=== PATIENT | female | born 1960 | race Caucasian/White ===

== ENCOUNTER 2018-09-18 07:44 | Inpatient (IN) | payer MEDICARE ==
[~2018-09-18] VITALS: Ht 157.5 cm; Wt 59.2 kg
[2018-09-18 09:13] LABS: ANION GAP 14 mmol/L (8-16); CALCIUM, TOTAL 9.3 mg/dL (8.8-10.5); CARBON DIOXIDE 22 mmol/L (22-29); CHLORIDE 103 mmol/L (98-107); CREATININE 0.76 mg/dL (0.60-1.30); GLOMERULAR FILTR. RATE CALC > 60 mL/min (>60); GLUCOSE,RANDOM 118 mg/dL (70-110); POTASSIUM 4.6 mmol/L (3.5-5.1); SODIUM SERUM 139 mmol/L (136-145); UREA NITROGEN, BLOOD 19 mg/dL (7-18)
[2018-09-18 09:19] LABS: ALANINE AMINOTRANSFERASE 22 U/L (12-78); ALBUMIN 3.8 g/dL (3.4-5.0); ALKALINE PHOSPHATASE 91 U/L (46-116); ASPARTATE AMINOTRANSFERASE 25 U/L (15-37); BILIRUBIN,TOTAL 0.4 mg/dL (0.1-1.0)
[2018-09-18 09:36] LABS: BASOPHILS % (AUTO) 0.6 % (0.0-2.0); EOSINOPHILS % (AUTO) 0.5 % (1.0-6.0); HEMATOCRIT 46.3 % (36-46); HEMOGLOBIN 15.9 g/dL (12.0-16.0); LYMPHOCYTES # (AUTO) 2.6 K/uL (1.0-4.8); LYMPHOCYTES % (AUTO) 23.2 % (22.0-44.0); MEAN CORPUSCULAR HEMOGLOBIN 31.8 pg (26.0-34.0); MEAN CORPUSCULAR HGB CONC 34.3 G/dL (31.0-37.0); MEAN CORPUSCULAR VOLUME 93 fL (80-100); MONOCYTES # (AUTO) 0.7 K/uL (0.1-1.0); MONOCYTES % (AUTO) 5.9 % (2.0-9.0); NEUTROPHILS # (AUTO) 7.8 K/uL (1.8-7.7); NEUTROPHILS % (AUTO) 69.8 % (40.0-70.0); PLATELET COUNT (AUTO) 212 K/uL (150-450); RED CELL DISTRIBUTION WIDTH 13.2 % (11.5-14.5)
[2018-09-18] MEDS ORDERED: ZOLPIDEM TARTRATE 10 MG TABLET PO PRN (09:45)
[2018-09-18] MEDS ORDERED: HALOPERIDOL 5 MG TABLET PO PRN (09:45)
[2018-09-18] MEDS ORDERED: LORazepam 2 MG TABLET PO PRN (09:45)
[2018-09-18 10:39] LABS: AMPHET/METH SCREEN,URINE NEGATIVE (NEGATIVE); BARBITURATE SCREEN, URINE NEGATIVE (NEGATIVE); BENZODIAZEPINES SCREEN,URINE NEGATIVE (NEGATIVE); CANNABINOID SCREEN,URINE NEGATIVE (NEGATIVE); COCAINE SCREEN,URINE NEGATIVE (NEGATIVE); METHADONE SCREEN, URINE NEGATIVE (NEGATIVE); OPIATE SCREEN,URINE NEGATIVE (NEGATIVE)
[2018-09-18 10:44] LABS: PHENCYCLIDINE SCREEN,URINE NEGATIVE (NEGATIVE)
[2018-09-18 14:21] VITALS: BP 120/85
[2018-09-18 16:09] VITALS: BP 113/64
[2018-09-19 05:36] VITALS: BP 110/68
[2018-09-19 08:36] VITALS: BP 100/66
[2018-09-19] MEDS ORDERED: MAG HYDROX/AL HYDROX/SIMETH ES 30 ML SUSPENSION UDCUP PO PRN (16:30)
[2018-09-19] MEDS ORDERED: NICOTINE 14 MG/24 HOUR PATCH TD PRN (16:30)
[2018-09-19] MEDS ORDERED: IBUPROFEN 400 MG TABLET PO PRN (16:30)
[2018-09-19] MEDS ORDERED: CloNIDine HCL 0.1 MG TABLET PO PRN (16:30)
[2018-09-19] MEDS ORDERED: DOCUSATE SODIUM 100 MG CAPSULE PO PRN (16:30)
[2018-09-19] MEDS ORDERED: ONDANSETRON HCL 4 MG TABLET PO PRN (16:30)
[2018-09-19] MEDS ORDERED: LOPERAMIDE HCL 2 MG CAPSULE PO PRN (16:30)
[2018-09-19] MEDS ORDERED: GuaiFENesin/D-METHORPHAN [SUGAR-FREE] 200-20MG/10 ML SYRUP UDCUP PO PRN (16:30)
[2018-09-19] MEDS ORDERED: PETROLATUM,WHITE 71 GM JELLY TP PRN (16:30)
[2018-09-19] MEDS ORDERED: ALBUTEROL SULFATE HFA 90 MCG/PUFF 8 GM INHALER IH PRN (16:30)
[2018-09-19] MEDS ORDERED: ACETAMINOPHEN 325 MG TABLET PO PRN (16:30)
[2018-09-19] MEDS ORDERED: MAGNESIUM HYDROXIDE SUSPENSION 30 ML UDCUP PO PRN (16:30)
[2018-09-19 17:08] VITALS: BP 103/62
[2018-09-20 01:17] VITALS: BP 106/68
[2018-09-20 08:55] LABS: HEMOGLOBIN A1C 5.8 % (4.5-6.2)
[2018-09-20] MEDS ORDERED: BuPROPion HCL XL 150 MG ER TABLET PO SCH (09:00)
[2018-09-20 09:27] VITALS: BP 100/70
[2018-09-20 09:31] LABS: CHOL/HDL RATIO 3.8 (3.9-5.7); THYROID STIMULATING HORMONE 4.65 uIU/mL (0.36-3.74)
[2018-09-20 16:26] VITALS: BP 118/66
[2018-09-21] MEDS: BuPROPion HCL XL 150 MG ER TABLET PO SCH ×2 (08:12→09:04)
[2018-09-21 08:17] VITALS: BP 113/70
[2018-09-21 16:12] VITALS: BP 100/75
[2018-09-22 05:18] VITALS: BP 106/78
[2018-09-22] MEDS: BuPROPion HCL XL 150 MG ER TABLET PO SCH (09:00)
[2018-09-22 10:05] VITALS: BP 101/65
[2018-09-22 16:10] VITALS: BP 111/66
[2018-09-23 01:08] VITALS: BP 108/65
[2018-09-23 08:24] VITALS: BP 109/67
[2018-09-23] MEDS: BuPROPion HCL XL 150 MG ER TABLET PO SCH (08:55)
[2018-09-23 16:12] VITALS: BP 115/67
[2018-09-24 05:05] VITALS: BP 110/68
[2018-09-24] MEDS: BuPROPion HCL XL 150 MG ER TABLET PO SCH (08:06)
[2018-09-24 08:23] VITALS: BP 107/66
[2018-09-24 16:10] VITALS: BP 122/66
[2018-09-25 04:43] VITALS: BP 130/80
[2018-09-25 08:32] VITALS: BP 125/75
[2018-09-25] MEDS: BuPROPion HCL XL 150 MG ER TABLET PO SCH (08:32)
[2018-09-25 16:26] VITALS: BP 105/64
[2018-09-26 06:24] VITALS: BP 120/77
[2018-09-26] MEDS: BuPROPion HCL XL 150 MG ER TABLET PO SCH (08:09)
[2018-09-26 08:37] VITALS: BP 128/89
[2018-09-26 17:32] VITALS: BP 123/73
[2018-09-27 00:30] VITALS: BP 118/80
[2018-09-27 08:16] VITALS: BP 120/77
[2018-09-27] MEDS: BuPROPion HCL XL 150 MG ER TABLET PO SCH (08:20)
[2018-09-27 16:28] VITALS: BP 112/66
[2018-09-28 05:26] VITALS: BP 119/70
[2018-09-28 05:27] VITALS: BP 110/68
[2018-09-28] MEDS: LEVOTHYROXINE SODIUM 25 MCG TABLET PO SCH ×2 (06:04→06:21)
[2018-09-28] MEDS: BuPROPion HCL XL 150 MG ER TABLET PO SCH (08:03)
[2018-09-28 08:22] VITALS: BP 124/73
[2018-09-28 16:11] VITALS: BP 113/68
[2018-09-29 04:11] VITALS: BP 118/77
[2018-09-29] MEDS: LEVOTHYROXINE SODIUM 25 MCG TABLET PO SCH (06:30)
[2018-09-29] MEDS: BuPROPion HCL XL 150 MG ER TABLET PO SCH (08:26)
[2018-09-29 08:33] VITALS: BP 121/79
[2018-09-29 08:47] LABS: BASOPHILS % (AUTO) 0.6 % (0.0-2.0); EOSINOPHILS % (AUTO) 1.1 % (1.0-6.0); HEMATOCRIT 44.1 % (36-46); HEMOGLOBIN 15.1 g/dL (12.0-16.0); LYMPHOCYTES # (AUTO) 1.4 K/uL (1.0-4.8); LYMPHOCYTES % (AUTO) 15.7 % (22.0-44.0); MEAN CORPUSCULAR HEMOGLOBIN 31.5 pg (26.0-34.0); MEAN CORPUSCULAR HGB CONC 34.2 G/dL (31.0-37.0); MEAN CORPUSCULAR VOLUME 92 fL (80-100); MONOCYTES # (AUTO) 0.5 K/uL (0.1-1.0); MONOCYTES % (AUTO) 5.8 % (2.0-9.0); NEUTROPHILS % (AUTO) 76.8 % (40.0-70.0); PLATELET COUNT (AUTO) 234 K/uL (150-450); RED BLOOD CELL COUNT(AUTO) 4.78 MIL/uL (4.00-5.20)
[2018-09-29 16:07] VITALS: BP 122/72
[2018-09-30 02:51] VITALS: BP 117/76
[2018-09-30] MEDS: LEVOTHYROXINE SODIUM 25 MCG TABLET PO SCH (06:03)
[2018-09-30] MEDS: BuPROPion HCL XL 150 MG ER TABLET PO SCH (08:18)
[2018-09-30 08:34] VITALS: BP 109/66
[2018-09-30 16:07] VITALS: BP 117/75
[2018-10-01 01:30] VITALS: BP 113/71
[2018-10-01] MEDS: LEVOTHYROXINE SODIUM 25 MCG TABLET PO SCH (06:30)
[2018-10-01] MEDS: BuPROPion HCL XL 150 MG ER TABLET PO SCH (08:05)
[2018-10-01 08:41] VITALS: BP 108/70
[2018-10-01] MEDS ORDERED: BUPR-93 PO (10:11)
[2018-10-01] MEDS ORDERED: LEVO25TA9 PO (10:16)
== END 2018-10-01 13:25 | disposition home or self-care (01) | DRG 885 ==
LOC: EMS 07:45 → B2X 13:09 → EMS 13:22
PROVIDERS: ADMIT Psychiatry & Neurology Psychiatry; ATTEND Psychiatry & Neurology Psychiatry
DX: F33.2 Major depressive disorder, recurrent severe without psychotic features (principal); R45.851 Suicidal ideations; R45.87 Impulsiveness; R45.84 Anhedonia; M19.90 Unspecified osteoarthritis, unspecified site; I50.9 Heart failure, unspecified; G89.29 Other chronic pain; F43.10 Post-traumatic stress disorder, unspecified; M54.9 Dorsalgia, unspecified; F17.290 Nicotine dependence, other tobacco product, uncomplicated; D72.829 Elevated white blood cell count, unspecified; E03.9 Hypothyroidism, unspecified; G44.209 Tension-type headache, unspecified, not intractable; G47.00 Insomnia, unspecified; Z90.710 Acquired absence of both cervix and uterus; Z59.0 Homelessness
CPT/HCPCS: 83036; 84439; 84443; G0480

== ENCOUNTER → 2019-03-12 | Outpatient (CLI) | payer MEDICARE | END | disposition home or self-care (01) | LOC: RADMN 08:27 | PROVIDERS: ATTEND General Practice | DX: J43.2 Centrilobular emphysema (principal); R91.8 Other nonspecific abnormal finding of lung field; R59.1 Generalized enlarged lymph nodes | CPT/HCPCS: 71250 ==